=== PATIENT | male | born 1960 | race Two or more races ===

== ENCOUNTER 2024-04-24 09:56 | Outpatient (CLI) | payer OTHER ==
[2024-04-24 10:58] LABS: PH,URINE 7.5 (5.0-8.0); URINE APPEARANCE Cloudy; URINE BILIRRUBIN Negative (NEGATIVE); URINE BLOOD Negative; URINE COLOR Yellow; URINE GLUCOSE Negative (NEGATIVE); URINE KETONE Negative (NEGATIVE); URINE LEUKOCYTE Trace; URINE NITRATE Negative; URINE PROTEIN Negative (NEGATIVE)
[2024-04-24 11:19] LABS: HEMOGLOBIN 14.6 g/dL (13-16.00); MEAN CELL VOLUME 88.3 fL (80.0-100.00); PLATELET COUNT 279 K/uL (150-450); RED BLOOD COUNT 4.87 M/uL (4.00-6.00); RED CELL DISTRIBUTION WIDTH 13.7 % (11.5-14.5)
[2024-04-24 11:37] LABS: URINE BACTERIA 7.5 uL (0.0-1933); URINE WBC 4.1 uL (0.0-23.2)
[2024-04-24 11:44] LABS: URINE EPITHELIAL CELLS 0.7 uL (0.0-38.8); URINE RBC 1.8 uL (0.0-20.8)
[2024-04-24 11:55] LABS: ALBUMIN 3.8 gm/dL (3.4-5.0); BILIRUBIN TOTAL 0.88 mg/dL (0.3-1.2); CALCIUM 9.2 mg/dL (8.5-10.1); CHOL HDL RATIO 2.7 (0-5.0); CREATININE SERUM 0.92 mg/dL (0.70-1.30); GFR 83.64; GLOBULINA 3.7 G/DL (2.4-3.5); POTASSIUM 4.74 mEq/L (3.5-5.1); PROSTATIC SPECIFIC ANTIGEN 2.23 NG/ML (0.010-4.00); TOTAL PROTEIN 7.5 gm/dL (6.4-8.2); TSH 2.47 uIU/mL (0.358-3.74)
== END 2024-04-24 10:02 | disposition home or self-care (01) ==
LOC: LAB 09:56
PROVIDERS: ATTEND General Practice
DX: D64.89 Other specified anemias (principal); N39.0 Urinary tract infection, site not specified; E11.9 Type 2 diabetes mellitus without complications; E78.2 Mixed hyperlipidemia; E03.4 Atrophy of thyroid (acquired); E55.9 Vitamin D deficiency, unspecified; Z12.11 Encounter for screening for malignant neoplasm of colon; R97.20 Elevated prostate specific antigen [PSA]; I11.9 Hypertensive heart disease without heart failure

== ENCOUNTER 2024-04-26 14:33 | Outpatient (CLI) | payer OTHER ==
[2024-04-26 15:07] LABS: ob NEGATIVE (NEGATIVE)
== END 2024-04-26 14:36 | disposition home or self-care (01) ==
LOC: LAB 14:33
PROVIDERS: ATTEND General Practice
DX: D64.89 Other specified anemias (principal); N39.0 Urinary tract infection, site not specified; E11.9 Type 2 diabetes mellitus without complications; E78.2 Mixed hyperlipidemia; E03.9 Hypothyroidism, unspecified; E55.9 Vitamin D deficiency, unspecified; Z12.11 Encounter for screening for malignant neoplasm of colon; I11.9 Hypertensive heart disease without heart failure; R97.20 Elevated prostate specific antigen [PSA]

== ENCOUNTER 2025-01-03 10:04 | Outpatient (CLI) | payer OTHER ==
[2025-01-03 10:47] LABS: BASO % 0.7 % (0.1-1.2); EOS # 0.15 (0.04-0.54); EOS % 2.7 % (0.7-7.0); LYMPH # 1.61 (1.18-3.74); LYMPH % 29.2 % (19.3-53.1); MEAN PLATELET VOLUME 10.60 fl (9.4-12.4); MONO # 0.52 (0.24-0.82); MONO % 9.4 % (4.7-12.5); NEUT # 3.18 (1.56-6.13); NEUT % 57.8 % (34.0-71.1); RED CELL DISTRIBUTION WIDTH 13.8 % (11.6-14.4)
[2025-01-03 10:57] LABS: URINE APPEARANCE Clear; URINE BILIRRUBIN Negative (NEGATIVE); URINE BLOOD Negative; URINE COLOR Yellow; URINE GLUCOSE Negative (NEGATIVE); URINE KETONE Trace (NEGATIVE); URINE LEUKOCYTE Negative; URINE NITRATE Negative; URINE PROTEIN Negative (NEGATIVE); URINE UROBILINOGEN 1.0 E.U./dl
[2025-01-03 10:58] LABS: URINE BACTERIA 14.4 uL (0.0-1933); URINE EPITHELIAL CELLS 2.2 uL (0.0-38.8); URINE WBC 2.1 uL (0.0-23.2)
[2025-01-03 11:57] LABS: ALT/SGPT 28.0 U/L (12-78); AST/SGOT 15.0 U/L (15-37); BILIRUBIN TOTAL 0.58 mg/dL (0.3-1.2); BUN CREA RATIO 24.0 (7.0-25.0); CHOL HDL RATIO 2.6 (0-5.0); CREATININE SERUM 0.85 mg/dL (0.70-1.30); GFR 91.33; GLOBULINA 3.4 G/DL (2.4-3.5); GLUCOSE FASTING 92.0 mg/dL (65-100); HDL 65.0 mg/dl (40-60); LDL 99.0 mg/dl (0-130); OSMOLALITY SERUM 285.0 MOSM/KG (275-295); PROSTATIC SPECIFIC ANTIGEN 1.73 NG/ML (0.010-4.00); TSH 2.44 uIU/mL (0.358-3.74); VLDL 7.0 (0-39)
[2025-01-03 12:10] LABS: URINE CAST 0.14 uL (0.0-1.40); URINE RBC 1.6 uL (0.0-20.8)
== END 2025-01-03 10:10 | disposition home or self-care (01) ==
LOC: LAB 10:04
DX: D64.89 Other specified anemias (principal); N39.0 Urinary tract infection, site not specified; E11.9 Type 2 diabetes mellitus without complications; E78.2 Mixed hyperlipidemia; E03.4 Atrophy of thyroid (acquired); E55.9 Vitamin D deficiency, unspecified; Z12.11 Encounter for screening for malignant neoplasm of colon; R97.20 Elevated prostate specific antigen [PSA]; I11.9 Hypertensive heart disease without heart failure

== ENCOUNTER 2025-01-17 10:21 | Outpatient (CLI) | payer OTHER ==
[2025-01-17 12:22] LABS: ob NEGATIVE (NEGATIVE)
== END 2025-01-17 10:25 | disposition home or self-care (01) ==
LOC: LAB 10:21
DX: D64.89 Other specified anemias (principal); N39.0 Urinary tract infection, site not specified; E11.9 Type 2 diabetes mellitus without complications; E78.2 Mixed hyperlipidemia; E03.9 Hypothyroidism, unspecified; E55.9 Vitamin D deficiency, unspecified; Z12.11 Encounter for screening for malignant neoplasm of colon; R97.20 Elevated prostate specific antigen [PSA]; I11.9 Hypertensive heart disease without heart failure

== ENCOUNTER 2025-05-03 12:13 | Emergency (ER) | payer OTHER ==
[~2025-05-03] VITALS: Ht 172.7 cm; Wt 76.7 kg
[2025-05-03] MEDS ORDERED: 0.9 % SODIUM CHLORIDE 1,000 ML IV STA (12:49)
[2025-05-03] MEDS ORDERED: ONDANSETRON HCL 2 MG/ML VIAL IV STA (12:50)
[2025-05-03] MEDS ORDERED: METOCLOPRAMIDE HCL 5 MG/ML VIAL IV ONE (13:00)
[2025-05-03] MEDS ORDERED: FAMOTIDINE/PF 20 MG/2 ML VIAL IV ONE (13:00)
[2025-05-03] MEDS ORDERED: ONDANSETRON HCL 2 MG/ML VIAL ONE (13:26)
[2025-05-03] MEDS ORDERED: METOCLOPRAMIDE HCL 5 MG/ML VIAL ONE (13:26)
[2025-05-03] MEDS ORDERED: FAMOTIDINE/PF 20 MG/2 ML VIAL ONE (13:26)
[2025-05-03 14:13] LABS: BASO % 0.8 % (0.1-1.2); EOS # 0.16 (0.04-0.54); EOS % 2.5 % (0.7-7.0); LYMPH # 1.78 (1.18-3.74); LYMPH % 28.0 % (19.3-53.1); MEAN PLATELET VOLUME 11.60 fl (9.4-12.4); MONO # 0.56 (0.24-0.82); MONO % 8.8 % (4.7-12.5); NEUT # 3.80 (1.56-6.13); NEUT % 59.7 % (34.0-71.1); RED CELL DISTRIBUTION WIDTH 12.8 % (11.6-14.4)
[2025-05-03 14:22] LABS: ERYTHROCYTE SEDIMENTATION RATE 13 mm/hr (0-20)
[2025-05-03 14:32] LABS: INR 1.02
[2025-05-03 14:35] LABS: ALT/SGPT 32.0 U/L (12-78); AST/SGOT 26.0 U/L (15-37); BILIRUBIN TOTAL 0.65 mg/dL (0.3-1.2); BILIRUBIN,CONJUGATED 0.19 mg/dL (0.0-0.2); BUN CREA RATIO 9.0 (7.0-25.0); CREATININE SERUM 0.95 mg/dL (0.70-1.30); GFR 80.33; GLUCOSE FASTING 102.0 mg/dL (65-100); OSMOLALITY SERUM 280.0 MOSM/KG (275-295)
== END 2025-05-03 16:49 | disposition home or self-care (01) ==
LOC: ER 12:13
PROVIDERS: General Practice
DX: K29.60 Other gastritis without bleeding (principal)